=== PATIENT | male | born 1990 | race Caucasian/White ===

== ENCOUNTER 2019-04-22 06:29 | Emergency (ER) | payer OTHER ==
[~2019-04-22] VITALS: Ht 170.2 cm; Wt 68.9 kg
[2019-04-22] MEDS ORDERED: KETO10TA2 PO (12:13)
== END 2019-04-22 13:28 | disposition home or self-care (01) ==
LOC: ER 06:29
DX: S52.512A Displaced fracture of left radial styloid process, initial encounter for closed fracture (principal); S00.83XA Contusion of other part of head, initial encounter; S50.01XA Contusion of right elbow, initial encounter; S80.02XA Contusion of left knee, initial encounter; S60.212A Contusion of left wrist, initial encounter; V49.9XXA Car occupant (driver) (passenger) injured in unspecified traffic accident, initial encounter; Y93.89 Activity, other specified; Y92.488 Other paved roadways as the place of occurrence of the external cause; Y99.8 Other external cause status